=== PATIENT | female | born 2000 | race Caucasian/White ===

== ENCOUNTER 2022-08-12 09:27 | Emergency (ER) | payer OTHER ==
[~2022-08-12] VITALS: Ht 157.5 cm; Wt 83.0 kg
[2022-08-12 09:31] VITALS: BP 144/86
[2022-08-12] MEDS ORDERED: MAGNESIUM/ALUMINUM HYDROXIDE/SIMETHICONE 30ML UDC PO ONE (10:15)
[2022-08-12] MEDS ORDERED: FAMOTIDINE 20MG/2ML VIAL IV ONE (10:15)
[2022-08-12] MEDS ORDERED: FAMOTIDINE 20MG TABLET PO ONE (10:15)
[2022-08-12] MEDS ORDERED: ACETAMINOPHEN 325MG TABLET PO ONE (10:15)
[2022-08-12] MEDS ORDERED: ONDANSETRON HCL 4MG/2ML INJ IV ONE (10:15)
[2022-08-12 10:48] LABS: BASOPHILS % 0.4 % (0.0-2.0); CLARITY URINE CLEAR (CLEAR); COLOR URINE YELLOW (YELLOW); EOSINOPHILS % 3.6 % (0.0-5.0); HEMATOCRIT. 43.3 % (36.0-48.0); HEMOGLOBIN. 14.7 g/dL (12.0-16.0); KETONES URINE NEGATIVE (NEGATIVE); LEUKOCYTE ESTERASE URINE NEGATIVE (NEGATIVE); LYMPHOCYTES % 20.5 % (20.0-50.0); MEAN CORPUSCULAR HEMOGLOBIN 30.6 pg (28.0-32.0); MEAN CORPUSCULAR VOLUME 90.2 fL (81.0-99.0); MONOCYTES % 4.4 % (2.0-8.0); NEUTROPHILS % 71.1 % (40.0-76.0); NITRITE URINE NEGATIVE (NEGATIVE); OCCULT BLOOD URINE NEGATIVE (NEGATIVE); PH URINE 8.5 (4.5-8.0); PLATELET 261 x1000/uL (130-400); PROTEIN URINE NEGATIVE (NEGATIVE); RED CELL DISTRIBUTION WIDTH 12.7 % (11.6-14.6); SPECIFIC GRAVITY URINE 1.023 (1.005-1.030); UROBILINOGEN URINE 0.2 E.U./dL (0.2-1.0)
[2022-08-12 10:55] LABS: CHLORIDE 104 mEq/L (98-107)
[2022-08-12 11:03] LABS: ETHANOL BLOOD < 10 mg/dL
[2022-08-12] MEDS ORDERED: CEFTRIAXONE 1 G PREMIX 50 ML IV ONE (11:45)
[2022-08-12] MEDS ORDERED: METRONIDAZOLE 500 MG PREMIX 100 ML IV ONE (11:45)
[2022-08-12 13:03] LABS: PROTHROMBIN TIME 11.2 sec (9.6-11.0)
[2022-08-12] MEDS ORDERED: MORP15TA67 MT (13:21)
[2022-08-12] MEDS ORDERED: TOPUD PO (13:21)
[2022-08-12] MEDS ORDERED: IBUP-2028 MT (13:21)
== END 2022-08-12 14:41 | disposition home or self-care (01) ==
LOC: ER 09:27 → EDBEDREQTM 11:59 → CANBEDREQ 13:06 → ER 14:41
DX: K80.50 Calculus of bile duct without cholangitis or cholecystitis without obstruction (principal); K80.20 Calculus of gallbladder without cholecystitis without obstruction
CPT/HCPCS: 36415; 76700; 80053; 80320; 81003; 81025; 83690; 85025; 85610; 86850; 86900; 86901; 96365; 96366; 96375; 99284; J0696; J2405; J3490; Z7610; G0480